=== PATIENT | male | born 1985 | race Caucasian/White ===

== ENCOUNTER 2016-09-09 16:34 | Emergency (ER) | payer OTHER ==
[~2016-09-09] VITALS: Ht 175.3 cm; Wt 73.4 kg
[~2016-09-09 16:34] MED LIST: ACYCLOVIR200 MG PO; BACTRIM,SEPT1 TABLET PO; CLINDAMYCIN HC300 MG PO; LIBRIUM25 MG PO; MULTI-VITAMIN1 EAC4 PO; NORCO 5/3251 TABLET PO; ZOFRAN4 MG PO
[2016-09-09 17:00] VITALS: BP 123/77
== END 2016-09-10 04:36 | disposition left against medical advice (07) ==
LOC: EME 16:34
DX: H57.9 Unspecified disorder of eye and adnexa (principal); Z53.21 Procedure and treatment not carried out due to patient leaving prior to being seen by health care provider
CPT/HCPCS: 99281; 99283

== ENCOUNTER 2016-09-28 07:20 | Emergency (ER) | payer OTHER ==
[~2016-09-28] VITALS: Ht 175.3 cm; Wt 72.7 kg
[2016-09-28] MEDS ORDERED: CITALOPRAM HBR20 MG PO (07:36)
[2016-09-28] MEDS ORDERED: NAPROSYN500 MG PO (08:10)
[2016-09-28 08:36] VITALS: BP 137/75
== END 2016-09-28 08:37 | disposition home or self-care (01) ==
LOC: EME 07:20
DX: S93.401A Sprain of unspecified ligament of right ankle, initial encounter (principal); X50.9XXA Other and unspecified overexertion or strenuous movements or postures, initial encounter; Y92.008 Other place in unspecified non-institutional (private) residence as the place of occurrence of the external cause; F17.200 Nicotine dependence, unspecified, uncomplicated
CPT/HCPCS: 73610; 73630; 99281; 99284

== ENCOUNTER 2016-10-03 23:07 | Emergency (ER) | payer OTHER ==
[~2016-10-03] VITALS: Ht 175.3 cm; Wt 74.5 kg
[~2016-10-03 23:07] MED LIST changes: +CITALOPRAM HBR20 MG PO; +NAPROSYN500 MG PO
[2016-10-04 00:13] LABS: HEMATOCRIT 41.6 % (38.0-50.0); MCH 32.6 PG (29.0-34.0); MCHC 36.1 G/DL (30.0-36.0); MCV 90.4 FL (86-99); MEAN PLAT.VOLUME 8.9 uM^3 (9.0-12.4); PLATELET COUNT 323 K/uL (156-360); RBC DIS.WIDTH-CV 11.8 % (11.8-14.6); RBC DIS.WIDTH-SD 38.6 % (39-53)
[2016-10-04 00:17] LABS: ADD MIUA? NO; BILIRUBIN NEGATIVE; BLOOD NEGATIVE; COLOR YELLOW ((YELLOW)); GLUCOSE (STRIP) NEGATIVE; KETONES 5; LEUKOCYTES NEGATIVE; NITRITE NEGATIVE; PROTEIN (STRIP) NEGATIVE; SPECIFIC GRAVITY 1.021 (1.000-1.030); UROBILINOGEN 0.2 MG/DL (0.2-1.0)
[2016-10-04 00:24] LABS: CHLORIDE 109 mEq/L (99-109); POTASSIUM 3.8 mEq/L (3.7-5.4); SODIUM 143 mEq/L (136-147)
[2016-10-04 00:26] LABS: GLUCOSE 110 mg/dL (70-99)
[2016-10-04 00:27] LABS: ANION GAP 14 MEQ/L (2-14)
[2016-10-04 00:28] LABS: AMPHETAMINE NEGATIVE (500 ng/mL); BARBITURATES NEGATIVE (200 ng/mL); BENZODIAZEPINES NEGATIVE (150 ng/mL); COCAINE NEGATIVE (150 ng/mL); METHADONE NEGATIVE (200 ng/mL); METHAMPHETAMINE NEGATIVE (500 ng/mL); OPIATES (MORPHINE) NEGATIVE (100 ng/mL); PHENCYCLIDINE NEGATIVE (25 ng/mL); THC CANNABINOIDS NEGATIVE (50 ng/mL); TRICYCLIC ANTIDEPRESSANTS NEGATIVE (300 ng/mL)
[2016-10-04 00:28] LABS: TOTAL BILIRUBIN 0.3 mg/dL (0.0-1.0)
[2016-10-04 00:29] LABS: ALKALINE PHOSPHATASE 79 IU/L (3-129); SERUM ETHYL ALCOHOL 273 mg/dL
[2016-10-04 00:29] LABS: INTERNAL CONTROLS VALID? YES; OXYCODONE NEGATIVE (100 ng/mL); PROPOXYPHENE NEGATIVE (300 ng/mL)
[2016-10-04 00:30] LABS: GFR ESTIMATE (CALCULATED) > 59 mL/min/
[2016-10-04 00:31] LABS: UREA NITROGEN (BUN) 18 mg/dL (9-23)
[2016-10-04 04:45] VITALS: BP 00/00
== END 2016-10-04 04:46 | disposition home or self-care (01) ==
LOC: EME 23:07
PROVIDERS: Emergency Medicine
DX: F10.129 Alcohol abuse with intoxication, unspecified (principal); Y90.8 Blood alcohol level of 240 mg/100 ml or more; I10 Essential (primary) hypertension; F17.200 Nicotine dependence, unspecified, uncomplicated
CPT/HCPCS: 80053; 81003; 85027; 99281; 99284; G0480

== ENCOUNTER 2016-11-06 20:05 | Emergency (ER) | payer OTHER ==
[~2016-11-06] VITALS: Ht 175.3 cm; Wt 71.0 kg
[2016-11-06 21:33] LABS: BASOPHIL COUNT 0.1 K/uL (0-0.1); EOSINOPHIL (%) 0.6 % (0-5); EOSINOPHIL COUNT 0.1 K/uL (0-0.3); HEMATOCRIT 44.2 % (38.0-50.0); IMMATURE GRANULOCYTE (%) 0.3 % (0.0-0.7); INSTRUMENT ABS NEUTROPHIL CT 7.1 K/uL; LYMPHOCYTE COUNT 1.9 K/uL (1.0-2.8); MCH 32.2 PG (29.0-34.0); MCHC 35.3 G/DL (30.0-36.0); MCV 91.1 FL (86-99); MEAN PLAT.VOLUME 8.9 uM^3 (9.0-12.4); MONOCYTE (%) 4.2 % (3-12); MONOCYTE COUNT 0.4 K/uL (0-0.8); NEUTROPHIL (%) 74.2 % (45-76); NEUTROPHIL COUNT 7.1 K/uL (1.8-6.4); PLATELET COUNT 263 K/uL (156-360); RBC DIS.WIDTH-CV 11.6 % (11.8-14.6); RED BLOOD COUNT 4.85 M/uL (4.00-5.50); WHITE BLOOD COUNT 9.5 K/uL (4.1-10.2)
[2016-11-06 21:53] LABS: CHLORIDE 107 mEq/L (99-109); POTASSIUM 3.6 mEq/L (3.7-5.4); SODIUM 142 mEq/L (136-147)
[2016-11-06 21:54] LABS: GLUCOSE 96 mg/dL (70-99)
[2016-11-06 21:56] LABS: ANION GAP 12 MEQ/L (2-14)
[2016-11-06 21:57] LABS: SERUM ETHYL ALCOHOL 249 mg/dL
[2016-11-06 21:58] LABS: GFR ESTIMATE (CALCULATED) > 59 mL/min/
[2016-11-06 21:59] LABS: UREA NITROGEN (BUN) 14 mg/dL (9-23)
[2016-11-07 05:14] VITALS: BP 96/49
== END 2016-11-07 05:17 | disposition home or self-care (01) ==
LOC: EME 20:05
PROVIDERS: Emergency Medicine
DX: F32.9 Major depressive disorder, single episode, unspecified (principal); F10.129 Alcohol abuse with intoxication, unspecified; R45.851 Suicidal ideations; F41.9 Anxiety disorder, unspecified; Y90.8 Blood alcohol level of 240 mg/100 ml or more; F17.200 Nicotine dependence, unspecified, uncomplicated
CPT/HCPCS: 70450; 80048; 85025; 90837; 99281; 99284; G0480

== ENCOUNTER 2016-12-10 16:08 | Emergency (ER) | payer OTHER ==
[~2016-12-10] VITALS: Ht 175.3 cm; Wt 71.9 kg
[2016-12-10 17:34] LABS: ADD MIUA? YES; BILIRUBIN NEGATIVE; BLOOD NEGATIVE; COLOR YELLOW ((YELLOW)); GLUCOSE (STRIP) NEGATIVE; KETONES NEGATIVE; LEUKOCYTES NEGATIVE; NITRITE NEGATIVE; PROTEIN (STRIP) NEGATIVE; SPECIFIC GRAVITY 1.019 (1.000-1.030); UROBILINOGEN 0.2 MG/DL (0.2-1.0)
[2016-12-10 17:38] LABS: HEMATOCRIT 42.3 % (38.0-50.0); MCH 32.1 PG (29.0-34.0); MCHC 35.2 G/DL (30.0-36.0); MCV 91.2 FL (86-99); MEAN PLAT.VOLUME 9.4 uM^3 (9.0-12.4); PLATELET COUNT 229 K/uL (156-360); RBC DIS.WIDTH-CV 11.4 % (11.8-14.6); RBC DIS.WIDTH-SD 38.3 % (39-53); RED BLOOD COUNT 4.64 M/uL (4.00-5.50)
[2016-12-10 17:49] LABS: CHLORIDE 105 mEq/L (99-109); POTASSIUM 4.2 mEq/L (3.7-5.4); SODIUM 140 mEq/L (136-147)
[2016-12-10 17:52] LABS: GLUCOSE 74 mg/dL (70-99)
[2016-12-10 17:53] LABS: ANION GAP 8 MEQ/L (2-14)
[2016-12-10 17:54] LABS: TOTAL BILIRUBIN 0.4 mg/dL (0.0-1.0)
[2016-12-10 17:55] LABS: ALKALINE PHOSPHATASE 56 IU/L (3-129); GFR ESTIMATE (CALCULATED) > 59 mL/min/
[2016-12-10 17:56] LABS: UREA NITROGEN (BUN) 13 mg/dL (9-23)
[2016-12-10 17:59] LABS: LIPASE 25 U/L (1.0-51.0)
[2016-12-10 18:11] LABS: AMORPHOUS URATES CRYSTALS 1+; BACTERIA RARE /HPF; CASTS NONE SEEN /LPF; CRYSTALS PRESENT; EPITHELIAL CELLS RARE /HPF; MUCUS RARE /LPF; RED BLOOD CELLS 0-5 /HPF (0-5); UCUL ADDED? NO; WHITE BLOOD CELLS 0-5 /HPF (0-5)
[2016-12-10] MEDS ORDERED: OMEPRAZOLE40 M1 PO (18:18)
[2016-12-10 18:59] VITALS: BP 134/81
== END 2016-12-10 19:00 | disposition home or self-care (01) ==
LOC: EME 16:08
PROVIDERS: Physician Assistant
DX: R10.11 Right upper quadrant pain (principal); I10 Essential (primary) hypertension; F10.20 Alcohol dependence, uncomplicated; F17.200 Nicotine dependence, unspecified, uncomplicated; Z88.0 Allergy status to penicillin
CPT/HCPCS: 76705; 80053; 81003; 83690; 85027; 99281; 99283

== ENCOUNTER 2017-02-08 18:59 | Emergency (ER) | payer OTHER ==
[~2017-02-08] VITALS: Ht 175.3 cm; Wt 71.3 kg
[~2017-02-08 18:59] MED LIST changes: +OMEPRAZOLE40 M1 PO
[2017-02-08] MEDS ORDERED: CLEOCIN300 MG PO (20:15)
[2017-02-08] MEDS ORDERED: NAPROSYN500 MG PO (20:15)
[2017-02-08 20:35] VITALS: BP 122/79
== END 2017-02-08 20:35 | disposition home or self-care (01) ==
LOC: EME 18:59
PROC: 3E0T3BZ Introduction of Anesthetic Agent into Peripheral Nerves and Plexi, Percutaneous Approach (ICD-10-PCS; principal; 2017-02-08)
DX: K08.89 Other specified disorders of teeth and supporting structures (principal)
CPT/HCPCS: 99281; 99283

== ENCOUNTER 2017-11-01 06:38 | Emergency (ER) | payer OTHER ==
[~2017-11-01] VITALS: Ht 175.3 cm; Wt 72.9 kg
[~2017-11-01 06:38] MED LIST changes: +CLEOCIN300 MG PO
[2017-11-01] MEDS ORDERED: NORCO 5/3251 TABLET PO (07:36)
[2017-11-01 07:38] LABS: HEMATOCRIT 43.6 % (38.0-50.0); HEMOGLOBIN 15.6 G/DL (12.5-16.6); MCH 32.8 PG (29.0-34.0); MCHC 35.8 G/DL (30.0-36.0); MCV 91.6 FL (86-99); PLATELET COUNT 275 K/uL (156-360); RBC DIS.WIDTH-CV 11.4 % (11.8-14.6); RBC DIS.WIDTH-SD 38.5 % (39-53); RED BLOOD COUNT 4.76 M/uL (4.00-5.50); WHITE BLOOD COUNT 7.9 K/uL (4.1-10.2)
[2017-11-01 07:59] LABS: APPEARANCE CLEAR ((CLEAR)); BILIRUBIN NEGATIVE; BLOOD NEGATIVE; COLOR YELLOW ((YELLOW)); GLUCOSE (STRIP) NEGATIVE; KETONES NEGATIVE; LEUKOCYTES NEGATIVE; NITRITE NEGATIVE; PROTEIN (STRIP) NEGATIVE; SPECIFIC GRAVITY 1.021 (1.000-1.030); UCUL ADDED? NO; UROBILINOGEN 0.2 MG/DL (0.2-1.0)
[2017-11-01 08:10] LABS: ALBUMIN 4.4 G/DL (3.2-4.8); ALKALINE PHOSPHATASE 54 IU/L (3-129); ALT (GPT) 21 IU/L (3-49); AST (GOT) 15 IU/L (2-34); CHLORIDE 106 MEQ/L (99-109); CREATININE 0.8 MG/DL (0.6-1.3); GFR ESTIMATE (CALCULATED) > 59 mL/min/ (58.99-99999); GLUCOSE 113 mg/dL (70-99); LIPASE 17 U/L (1.0-51.0); SODIUM 137 MEQ/L (136-147); TOTAL BILIRUBIN 0.4 MG/DL (0.0-1.0); TOTAL PROTEIN 7.1 G/DL (6.4-8.3); UREA NITROGEN (BUN) 16 mg/dL (9-23)
[2017-11-01 09:47] VITALS: BP 123/77
== END 2017-11-01 09:50 | disposition home or self-care (01) ==
LOC: EME → EDBD 06:38 → EME 06:38
PROVIDERS: Emergency Medicine Emergency Medical Services
DX: K29.70 Gastritis, unspecified, without bleeding (principal); R10.13 Epigastric pain; R07.9 Chest pain, unspecified; Z88.0 Allergy status to penicillin; F17.200 Nicotine dependence, unspecified, uncomplicated
CPT/HCPCS: 76705; 80053; 81003; 83690; 85027; 93005; 99281; 99285; J3010